=== PATIENT | female | born 1965 | race Caucasian/White ===

== ENCOUNTER 2018-08-26 13:52 | Emergency (ER) | payer MEDICAID, OTHER ==
[2018-08-26 16:42] LABS: ADD MAN DIFF? NO
[2018-08-26 16:43] LABS: BASOPHILS % 0.4 % (0.0-2.0); EOSINOPHILS # 0.2 10^3/ul (0.0-0.5); EOSINOPHILS % 4.1 % (0.0-7.0); HEMATOCRIT 43.9 % (37.0-47.0); HEMOGLOBIN 13.8 g/dl (12.0-16.0); LYMPHOCYTES # 1.5 10^3/ul (0.8-2.9); LYMPHOCYTES % 28.3 % (15.0-51.0); MEAN CORPUSCULAR HEMOGLOBIN 27.9 pg (29.0-33.0); MEAN CORPUSCULAR HGB CONC 31.4 g/dl (32.0-37.0); MEAN CORPUSCULAR VOLUME 88.9 fl (82.0-101.0); MEAN PLATELET VOLUME 11.2 fl (7.4-10.4); MONOCYTE # 0.4 10^3/ul (0.3-0.9); MONOCYTES % 7.1 % (0.0-11.0); NEUTROPHIL # 3.2 10^3/ul (1.6-7.5); NEUTROPHILS % 59.9 % (39.0-77.0); PLATELET COUNT 273 10^3/UL (140-415); RED BLOOD COUNT 4.94 10^6/ul (4.20-5.40); RED CELL DISTRIBUTION WIDTH 14.2 % (11.5-14.5)
[2018-08-26 16:43] LABS: WHITE BLOOD COUNT 5.3 10^3/ul (4.8-10.8)
[2018-08-26 16:48] LABS: URINE BLOOD (Dip) POC 2+ (NEGATIVE); URINE GLUCOSE (Dip) POC Negative (NEGATIVE); URINE KETONES (Dip) POC Negative (NEGATIVE); URINE LEUKOCYTE EST (Dip) POC Trace (NEGATIVE); URINE NITRITE (Dip) POC Negative (NEGATIVE); URINE TOTAL PROTEIN POC Trace (NEGATIVE)
[2018-08-26 16:48] LABS: URINE PH (Dip) POC 5.5 (5.0-8.5)
[2018-08-26 17:01] LABS: ALANINE AMINOTRANSFERASE 26 IU/L (13-69); ALBUMIN 3.7 g/dl (3.3-4.9); ALKALINE PHOSPHATASE 106 IU/L (42-121); ANION GAP 14 (8-16); ASPARTATE AMINO TRANSFERASE 22 IU/L (15-46); BILIRUBIN,INDIRECT 0.3 mg/dl (0-1.1); BILIRUBIN,TOTAL 0.3 mg/dl (0.2-1.3); BLOOD UREA NITROGEN 16 mg/dl (7-20); CALCIUM 9.6 mg/dl (8.4-10.2); CARBON DIOXIDE 29 mmol/L (21-31); CHLORIDE 103 mmol/L (97-110); CREATININE 0.79 mg/dl (0.44-1.00); GLUCOSE 101 mg/dl (70-220); LIPASE 173 U/L (23-300); POTASSIUM 4.1 mmol/L (3.5-5.1); SODIUM 142 mmol/L (135-144); TOTAL PROTEIN 7.4 g/dl (6.1-8.1)
[2018-08-26] MEDS: PANTOPRAZOLE 40 MG INJ IV (17:39)
[2018-08-26] MEDS: KETOROLAC 30 MG INJ IV (17:39)
== END 2018-08-26 18:19 | disposition home or self-care (01) ==
LOC: E/R 13:52
DX: R10.13 Epigastric pain (principal)
CPT/HCPCS: 36415; 80053; 81003; 81025; 83690; 85025; 96374; 96375; 99284-25

== ENCOUNTER 2019-02-10 09:55 | Day surgery (SDC) | payer OTHER ==
[2019-02-10] MEDS: SOD CHLORIDE 0.9% 1,000 ML IV ×2 (09:00→15:07)
[2019-02-10] MEDS: CEFAZOLIN 2 GM/50 ML (PMX) 50 ML IVPB ×2 (09:00→15:08)
[2019-02-10 10:45] LABS: ADD MAN DIFF? NO
[2019-02-10 10:50] LABS: WHITE BLOOD COUNT 4.5 10^3/ul (4.8-10.8)
[2019-02-10 10:50] LABS: BASOPHILS % 0.4 % (0.0-2.0); EOSINOPHILS # 0.2 10^3/ul (0.0-0.5); EOSINOPHILS % 5.3 % (0.0-7.0); HEMOGLOBIN 13.2 g/dl (12.0-16.0); LYMPHOCYTES # 1.4 10^3/ul (0.8-2.9); LYMPHOCYTES % 31.6 % (15.0-51.0); MEAN CORPUSCULAR HEMOGLOBIN 28.2 pg (29.0-33.0); MEAN CORPUSCULAR HGB CONC 31.4 g/dl (32.0-37.0); MEAN CORPUSCULAR VOLUME 89.7 fl (82.0-101.0); MONOCYTE # 0.4 10^3/ul (0.3-0.9); MONOCYTES % 8.4 % (0.0-11.0); NEUTROPHIL # 2.4 10^3/ul (1.6-7.5); NEUTROPHILS % 54.1 % (39.0-77.0); PLATELET COUNT 293 10^3/UL (140-415); RED BLOOD COUNT 4.68 10^6/ul (4.20-5.40)
[2019-02-10 11:10] LABS: INR 0.82; PROTIME 11.4 Sec (11.9-14.9); PT RATIO 0.9
[2019-02-10 11:13] LABS: ALANINE AMINOTRANSFERASE 20 IU/L (13-69); ALBUMIN 3.8 g/dl (3.3-4.9); ALBUMIN/GLOBULIN RATIO 1.15; ALKALINE PHOSPHATASE 102 IU/L (42-121); ANION GAP 7 (5-13); ASPARTATE AMINO TRANSFERASE 16 IU/L (15-46); BILIRUBIN,INDIRECT 0.3 mg/dl (0-1.1); BILIRUBIN,TOTAL 0.3 mg/dl (0.2-1.3); BLOOD UREA NITROGEN 13 mg/dl (7-20); CALCIUM 9.2 mg/dl (8.4-10.2); CARBON DIOXIDE 29 mmol/L (21-31); CHLORIDE 107 mmol/L (97-110); CREATININE 0.75 mg/dl (0.44-1.00); Estimated GFR > 60 mL/min (>60); GLUCOSE 113 mg/dl (70-220); POTASSIUM 4.3 mmol/L (3.5-5.1); SODIUM 143 mmol/L (135-144); TOTAL PROTEIN 7.1 g/dl (6.1-8.1)
[2019-02-10] MEDS ORDERED: BUPIVACAINE 0.25% (MPF) 30 ML INJ (12:59)
[2019-02-10] MEDS ORDERED: DIPHENHYDRAMINE 50 MG INJ IV (13:00)
[2019-02-10] MEDS ORDERED: FENTAnyl 50 MCG/ML VIAL IV (13:00)
[2019-02-10] MEDS ORDERED: METOCLOPRAMIDE 10 MG INJ IV (13:00)
[2019-02-10] MEDS ORDERED: HYDROmorphONE 1 MG/5 ML IV SYRINGE IV (13:00)
[2019-02-10] MEDS ORDERED: FENTAnyl 50 MCG/ML VIAL (13:19)
[2019-02-10] MEDS ORDERED: SUCCINYLCHOLINE CHLORIDE 100 MG/5 ML SYG IV (13:20)
[2019-02-10] MEDS ORDERED: ROPIVACAINE 0.5 % 30 ML VIAL (13:23)
[2019-02-10] MEDS ORDERED: PROVENTIL HFA 6.7GM INHALER ×2 (13:30→14:44)
[2019-02-10] MEDS: POLYMYXIN/BACITRACIN 1L IRRIG (14:01)
[2019-02-10] MEDS: BUPIVACAINE 0.5%/EPI (SDV) 30 ML INJ (14:01)
[2019-02-10] MEDS ORDERED: LIDOCAINE 100 MG SYRINGE (14:36)
[2019-02-10] MEDS ORDERED: SUGAMMADEX SODIUM 200 MG/2 ML VIAL IV (14:36)
[2019-02-10] MEDS ORDERED: ROCURONIUM 50 MG INJ (14:36)
[2019-02-10] MEDS ORDERED: CEFAZOLIN 1 GM INJ (14:36)
[2019-02-10] MEDS ORDERED: PROPOFOL 20 ML (14:36)
[2019-02-10] MEDS ORDERED: morphine 2 MG INJ IV (15:00)
[2019-02-10] MEDS ORDERED: IBUPROFEN 600 MG TAB PO (15:00)
[2019-02-10] MEDS ORDERED: KETOROLAC 30 MG INJ IV (15:00)
[2019-02-10] MEDS ORDERED: ONDANSETRON 4 MG INJ IV (15:00)
[2019-02-10] MEDS ORDERED: HYDROCODONE/APAP (5/325) TAB PO (15:00)
[2019-02-10] MEDS: ONDANSETRON 4 MG INJ IV (15:02)
[2019-02-10] MEDS: FENTAnyl 50 MCG/ML VIAL IV ×2 (15:02→15:29)
[2019-02-10] MEDS: MEPERIDINE 25 MG INJ IV (15:03)
[2019-02-10] MEDS: ALBUTEROL 0.083% (NEB) 2.5 MG/3 ML AMP HHN (15:18)
[2019-02-10] MEDS: HYDROmorphONE 1 MG/5 ML IV SYRINGE IV ×2 (15:30→15:42)
[2019-02-10] MEDS: HYDROCODONE/APAP (5/325) TAB PO (16:10)
== END 2019-02-10 18:30 | disposition home or self-care (01) ==
LOC: SDS 09:55
DX: K43.6 Other and unspecified ventral hernia with obstruction, without gangrene (principal); E66.01 Morbid (severe) obesity due to excess calories; Z68.42 Body mass index [BMI] 45.0-49.9, adult
CPT/HCPCS: 49561; 80053; 85025; 85610; 85730; 88302; 94664

== ENCOUNTER 2019-02-11 19:13 | Emergency (ER) | payer OTHER ==
[2019-02-12] MEDS: BACITRACIN 0.9 GM OINT TOP (00:49)
== END 2019-02-12 01:12 | disposition home or self-care (01) ==
LOC: E/R 19:13
DX: Z48.01 Encounter for change or removal of surgical wound dressing (principal); Z87.891 Personal history of nicotine dependence; Z98.890 Other specified postprocedural states
CPT/HCPCS: 99281; Z7502

== ENCOUNTER 2019-02-18 17:16 | Emergency (ER) | payer OTHER | END 2019-02-18 22:47 | disposition home or self-care (01) | LOC: E/R 17:16 | DX: Z48.01 Encounter for change or removal of surgical wound dressing (principal); Z76.0 Encounter for issue of repeat prescription; Z87.891 Personal history of nicotine dependence | CPT/HCPCS: 99281; Z7502 ==

== ENCOUNTER 2019-06-29 09:19 | Emergency (ER) | payer OTHER ==
[2019-06-29 10:48] LABS: URINE BLOOD (Dip) POC Negative (NEGATIVE); URINE GLUCOSE (Dip) POC Negative (NEGATIVE); URINE KETONES (Dip) POC Trace (NEGATIVE); URINE LEUKOCYTE EST (Dip) POC Negative (NEGATIVE); URINE NITRITE (Dip) POC Negative (NEGATIVE); URINE TOTAL PROTEIN POC Trace (NEGATIVE)
[2019-06-29] MEDS: SOD CHLORIDE 0.9% 1,000 ML IV (10:50)
[2019-06-29 10:51] LABS: ADD MAN DIFF? NO
[2019-06-29] MEDS: morphine 4 MG/ML VIAL IV (10:51)
[2019-06-29 10:54] LABS: WHITE BLOOD COUNT 5.9 10^3/ul (4.8-10.8)
[2019-06-29 10:54] LABS: BASOPHILS % 0.3 % (0.0-2.0); EOSINOPHILS # 0.2 10^3/ul (0.0-0.5); HEMATOCRIT 41.2 % (37.0-47.0); HEMOGLOBIN 12.8 g/dl (12.0-16.0); LYMPHOCYTES # 1.6 10^3/ul (0.8-2.9); MEAN CORPUSCULAR HEMOGLOBIN 28.1 pg (29.0-33.0); MEAN CORPUSCULAR HGB CONC 31.1 g/dl (32.0-37.0); MEAN CORPUSCULAR VOLUME 90.5 fl (82.0-101.0); MEAN PLATELET VOLUME 10.6 fl (7.4-10.4); MONOCYTE # 0.6 10^3/ul (0.3-0.9); MONOCYTES % 9.9 % (0.0-11.0); NEUTROPHIL # 3.5 10^3/ul (1.6-7.5); NEUTROPHILS % 59.6 % (39.0-77.0); PLATELET COUNT 255 10^3/UL (140-415); RED BLOOD COUNT 4.55 10^6/ul (4.20-5.40); RED CELL DISTRIBUTION WIDTH 14.1 % (11.5-14.5)
[2019-06-29 11:16] LABS: ANION GAP 5 (5-13); BLOOD UREA NITROGEN 13 mg/dl (7-20); CALCIUM 8.8 mg/dl (8.4-10.2); CARBON DIOXIDE 29 mmol/L (21-31); CHLORIDE 105 mmol/L (97-110); CREATININE 0.79 mg/dl (0.44-1.00); Estimated GFR > 60 mL/min (>60); GLUCOSE 109 mg/dl (70-220); POTASSIUM 3.7 mmol/L (3.5-5.1); SODIUM 139 mmol/L (135-144)
[2019-06-29 11:18] LABS: ETHANOL < 10.0 mg/dl (0-0)
[2019-06-29 11:21] LABS: AMPHETAMINE/METHAMPHETAMINE Negative (NEGATIVE); BARBITURATES Negative (NEGATIVE); BENZODIAZEPINES Negative (NEGATIVE); CANNABINOIDS Negative (NEGATIVE); COCAINE Negative (NEGATIVE); OPIATES Negative (NEGATIVE)
[2019-06-29 11:27] LABS: INR 0.89; PROTIME 12.2 Sec (11.9-14.9)
[2019-06-29 11:28] LABS: PARTIAL THROMBOPLASTIN TIME 26.2 Sec (23.0-35.0)
[2019-06-29] MEDS: IOHEXOL 300MG/ML 150 ML BTL (12:01)
[2019-06-29] MEDS: SOD CHLORIDE 0.9% 100 ML (12:02)
== END 2019-06-29 13:09 | disposition home or self-care (01) ==
LOC: E/R 09:19
DX: S00.83XA Contusion of other part of head, initial encounter (principal); R07.9 Chest pain, unspecified; F17.210 Nicotine dependence, cigarettes, uncomplicated; V89.2XXA Person injured in unspecified motor-vehicle accident, traffic, initial encounter
CPT/HCPCS: 36415; 70450; 71045; 73110-RT; 73130-RT; 73590; 74177; 80048; 80307; 81003; 85025; 85610; 85730; 96374; 99285-25